=== PATIENT | male | born 1985 | race Caucasian/White ===

== ENCOUNTER → 2017-12-16 | Outpatient (CLI) | payer OTHER ==
[~2017-12-16] MED LIST: PROHANCE 279.3MG/ML 15ML VIAL (A9576) As Ordered; PROHANCE 279.3MG/ML 5ML VIAL (A9576) As Ordered
== END ==
LOC: M RAD 17:00
DX: M71.21 Synovial cyst of popliteal space [Baker], right knee (principal); M85.662 Other cyst of bone, left lower leg
CPT/HCPCS: A9576